=== PATIENT | male | born 1955 | race Caucasian/White ===

== ENCOUNTER 2023-12-21 10:17 | Emergency (ER) | payer OTHER ==
[~2023-12-21] VITALS: Ht 172.7 cm; Wt 95.0 kg
[2023-12-21] MEDS ORDERED: METO50 PO (11:45)
[2023-12-21 11:53] VITALS: TEMP 98.1
[2023-12-21] MEDS: SODIUM PHOSPHATE,MONO-DIBASIC 133 ML ENEMA PR ONE (12:39)
[2023-12-21 13:06] VITALS: BP 146/92; PULSE 66; RESP 16
[2023-12-21] MEDS: METOPROLOL SUCCINATE 50 MG ER TABLET PO ONE (13:36)
== END 2023-12-21 13:45 | disposition home or self-care (01) ==
LOC: EMS 10:18
DX: T18.5XXA Foreign body in anus and rectum, initial encounter (principal); I10 Essential (primary) hypertension; Z98.890 Other specified postprocedural states; W44.8XXA Other foreign body entering into or through a natural orifice, initial encounter; Y93.89 Activity, other specified; Y92.89 Other specified places as the place of occurrence of the external cause; Y99.8 Other external cause status
CPT/HCPCS: 74176; 99284; Z7502; Z7610